=== PATIENT | female | born 1955 | race Caucasian/White ===

== ENCOUNTER 2017-09-29 23:40 | Observation (INO) | payer OTHER ==
[~2017-09-29] VITALS: Ht 162.6 cm; Wt 40.8 kg
[~2017-09-29 23:40] MED LIST: ACYC400; ASPI81CH; ASPI81EC PO; AZIT250 PO; Aspir-Low81 MG PO; Ativan1 MG PO; BASAGLAR K100 UNIT/1; BUPR150ER PO; Budeprion Sr150 MG PO; CALCA500CH PO; CEPH500 PO; CHOL10002; CYCL10 PO; Crutch1 EACH MISC; DOCU100 PO; FLUC150A PO; HYDPAM50 PO; Haldol 5 mg Tab5 MG PO; INSDET100; INSDET100 SUBQ; L-Lysine500 M1 PO; LAMO25 PO; LIDO700A20 TOP; LORA10ER PO; LYSINE; MELO7.5 PO; METF500 PO; METPRE4DP PO; MULVITMIND PO; MUPI2TO TOP; Norco 10-325 T1 EACH PO; Novolog100 UNIT/2; OMEP20ER PO; OMEPRAZOLE MAGN20 MG PO; PRAV20 PO; QUET100 PO; QUET200 PO; QUET300 PO; RANI150 PO; TRAZ100; TRAZ100 PO; TRAZ150T57; TRAZ50 PO; ULTRA-LIGHT RO1 EACH UD; VALA500 PO; VENL150ER PO; VENL75; Verotin-Gr Cap1 EACH PO; [UNRECOGNIZED DRUG - REMARK]
[2017-09-30 07:13] LABS: BASOPHILS ABSOLUTE AUTO 0.03 K/mm3 (0.00-0.23); BASOPHILS PERCENT AUTO 0 % (0-2); EOSINOPHILS PERCENT AUTO 4 % (0-6); Hemoglobin 14.4 g/dL (11.5-16.0); IMMATURE GRAN ABSOLUTE AUTO 0.01 K/mm3 (0.00-0.10); IMMATURE GRAN PERCENT AUTO 0 % (0-1); LYMPHOCYTES ABSOLUTE AUTO 2.85 K/mm3 (0.84-5.20); LYMPHOCYTES PERCENT AUTO 38 % (21-46); MONOCYTES ABSOLUTE AUTO 0.82 K/mm3 (0.16-1.47); MONOCYTES PERCENT AUTO 11 % (4-13); Mean Corpuscular HGB 30.7 pg (26.0-34.0); Mean Corpuscular HGB Conc 33.5 g/dL (31.5-36.5); Mean Corpuscular Volume 92 fL (80-100); NEUTROPHILS ABSOLUTE AUTO 3.58 K/mm3 (1.96-9.15); NEUTROPHILS PERCENT AUTO 47 % (41-73); Platelet Count 169 K/mm3 (150-400); RDW Standard Deviation 39.6 fL (35.1-46.3); Red Blood Cell Count 4.69 M/mm3 (3.80-5.20); White Blood Cell Count 7.59 K/mm3 (4.00-11.30)
[2017-09-30 07:35] LABS: Alanine Aminotransfer (ALT/SGP 22 U/L (12-78); Albumin, Blood 2.6 g/dL (3.4-5.0); Albumin/Globulin Ratio 0.7 (0.8-1.8); Alk Phos 145 U/L (50-136); Anion Gap 5 mmol/L (6-16); Aspartate Aminotrans (AST/SGOT 17 U/L (12-37); Bilirubin, Total 0.4 mg/dL (0.1-1.0); Blood Urea Nitrogen 8 mg/dL (8-24); Bun/Creatinine Ratio 18.5 (12.0-20.0); CO2, Blood 29 mmol/L (21-32); Calcium, Blood 8.5 mg/dL (8.5-10.1); Chloride, Blood 104 mmol/L (98-108); Creatinine, Blood 0.43 mg/dL (0.40-1.00); Globulin, Blood 3.7 g/dL (2.2-4.0); Glomerular Filtration Rate >60 (60-); Glucose, Blood 302 mg/dL (70-99); Salicylate <1.7 mg/dL (2.8-20.0); Sodium, Blood 138 mmol/L (136-145); Total Protein, Blood 6.3 g/dL (6.4-8.2)
[2017-09-30 07:46] LABS: Acetaminophen, Random <2.0 ug/mL (10.0-30.0); Ethanol (Alcohol), Blood, Med <3 mg/dL
[2017-10-01 01:47] LABS: Source, Urine Clean Catch
[2017-10-01 01:50] LABS: Bilirubin, Urine Neg (Neg); Blood, Urine 1+ (Neg); Glucose Qualitative, Urine 3+ (Neg); Ketones, Urine Neg (Neg); Leukocyte Esterase, Urine Neg (Neg); Nitrite, Urine Neg (Neg); Protein, Urine 2+ (Neg); Specific Gravity, Urine 1.015 (1.003-1.022); Urobilinogen, Urine NORM (Normal)
[2017-10-01 01:58] LABS: Appearance, Urine Clear (Clear); Color, Urine Yellow (P-Yellow)
[2017-10-01 01:59] LABS: Bacteria Few /hpf; Red Blood Cells, Urine 0-2 /hpf (0-2); Squamous Epithelial Cells Rare /hpf (Few); White Blood Cells, Urine 0-2 /hpf (0-5)
== END 2017-10-07 11:00 | disposition home or self-care (01) ==
LOC: ER 23:40 → EOR 23:41 → ICUE 23:41 → MEDS 10-03 12:59 → ENPENDDIS 10-07 10:41 → MEDS 10-07 11:00
PROVIDERS: Emergency Medicine
DX: F31.9 Bipolar disorder, unspecified (principal); R26.89 Other abnormalities of gait and mobility; F15.10 Other stimulant abuse, uncomplicated; G92 Toxic encephalopathy; E11.9 Type 2 diabetes mellitus without complications; K21.9 Gastro-esophageal reflux disease without esophagitis; F17.200 Nicotine dependence, unspecified, uncomplicated; E78.5 Hyperlipidemia, unspecified; I67.89 Other cerebrovascular disease; Z74.09 Other reduced mobility; Z88.5 Allergy status to narcotic agent; Z88.8 Allergy status to other drugs, medicaments and biological substances; Z88.2 Allergy status to sulfonamides; Z79.899 Other long term (current) drug therapy; Z79.4 Long term (current) use of insulin
CPT/HCPCS: 80053; 81001; 82947; 84443; 85025; 96372; 97163; 97166; 97535; 99285; G0378; G0480; G8978; G8979; G8980; G8987; G8988; G8989; J1200; J1630; J1650; J1815; J2060; Q0163

== ENCOUNTER 2017-10-08 18:27 | Emergency (ER) | payer OTHER ==
[~2017-10-08] VITALS: Ht 162.6 cm; Wt 40.8 kg
== END 2017-10-08 21:08 | disposition left against medical advice (07) ==
LOC: ER 18:27
DX: Z53.21 Procedure and treatment not carried out due to patient leaving prior to being seen by health care provider (principal)

== ENCOUNTER 2017-10-09 12:30 | Inpatient (IN) | payer OTHER ==
[~2017-10-09] VITALS: Ht 157.5 cm; Wt 43.8 kg
[2017-10-09 13:48] LABS: Source, Urine Clean Catch
[2017-10-09 13:52] LABS: Appearance, Urine Cloudy (Clear); Bilirubin, Urine Neg (Neg); Blood, Urine 3+ (Neg); Color, Urine Yellow (P-Yellow); Glucose Qualitative, Urine 4+ (Neg); Ketones, Urine Neg (Neg); Leukocyte Esterase, Urine 3+ (Neg); Nitrite, Urine Neg (Neg); Protein, Urine 2+ (Neg); Urobilinogen, Urine NORM (Normal)
[2017-10-09 13:59] LABS: White Blood Cells, Urine TNTC /hpf (0-5)
[2017-10-09 14:00] LABS: Bacteria Many /hpf; Squamous Epithelial Cells Rare /hpf (Few); Yeast/Fungi Urine Mod /hpf
[2017-10-09 14:03] LABS: U Amphetamine Screen Not Detected; U Barbituate Screen Not Detected; U Benzodiazapine Screen DETECTED; U Buprenorphine Screen Not Detected; U Cannabinoids Screen Not Detected; U Cocaine Screen Not Detected; U Methadone Screen Not Detected; U Methamphetamine Screen Not Detected; U Opiates Screen Not Detected; U Oxycodone Screen Not Detected; U Phencyclidine Screen Not Detected; U Propoxyphene Screen Not Detected
[2017-10-09 15:32] LABS: BASOPHILS ABSOLUTE AUTO 0.06 K/mm3 (0.00-0.23); BASOPHILS PERCENT AUTO 1 % (0-2); EOSINOPHILS ABSOLUTE AUTO 0.18 K/mm3 (0.00-0.68); EOSINOPHILS PERCENT AUTO 2 % (0-6); Hematocrit 44.3 % (33.0-51.0); Hemoglobin 14.6 g/dL (11.5-16.0); IMMATURE GRAN ABSOLUTE AUTO 0.02 K/mm3 (0.00-0.10); IMMATURE GRAN PERCENT AUTO 0 % (0-1); LYMPHOCYTES ABSOLUTE AUTO 3.09 K/mm3 (0.84-5.20); LYMPHOCYTES PERCENT AUTO 32 % (21-46); MONOCYTES PERCENT AUTO 6 % (4-13); Mean Corpuscular HGB 30.4 pg (26.0-34.0); Mean Corpuscular Volume 92 fL (80-100); Mean Platelet Volume 11.5 fL (9.1-12.4); NEUTROPHILS ABSOLUTE AUTO 5.81 K/mm3 (1.96-9.15); NEUTROPHILS PERCENT AUTO 60 % (41-73); Platelet Count 261 K/mm3 (150-400); RDW Coefficient Variation 11.8 % (11.7-14.2); RDW Standard Deviation 40.1 fL (35.1-46.3); Red Blood Cell Count 4.81 M/mm3 (3.80-5.20); White Blood Cell Count 9.76 K/mm3 (4.00-11.30)
[2017-10-09 15:47] LABS: Acetaminophen, Random 11.6 ug/mL (10.0-30.0); Alanine Aminotransfer (ALT/SGP 21 U/L (12-78); Albumin/Globulin Ratio 0.7 (0.8-1.8); Alk Phos 267 U/L (50-136); Anion Gap 9 mmol/L (6-16); Aspartate Aminotrans (AST/SGOT 19 U/L (12-37); Bilirubin, Total 0.2 mg/dL (0.1-1.0); Blood Urea Nitrogen 18 mg/dL (8-24); Bun/Creatinine Ratio 53.7 (12.0-20.0); CO2, Blood 26 mmol/L (21-32); Calcium, Blood 9.2 mg/dL (8.5-10.1); Chloride, Blood 98 mmol/L (98-108); Creatinine, Blood 0.34 mg/dL (0.40-1.00); Ethanol (Alcohol), Blood, Med <3 mg/dL; Globulin, Blood 4.4 g/dL (2.2-4.0); Glomerular Filtration Rate >60 (60-); Glucose, Blood 354 mg/dL (70-99); Potassium, Blood 4.4 mmol/L (3.5-5.5); Salicylate 1.8 mg/dL (2.8-20.0); Sodium, Blood 133 mmol/L (136-145); Total Protein, Blood 7.4 g/dL (6.4-8.2)
[2017-10-15 05:13] LABS: Hematocrit 41.2 % (33.0-51.0); Hemoglobin 13.8 g/dL (11.5-16.0); Mean Corpuscular HGB 30.9 pg (26.0-34.0); Mean Corpuscular HGB Conc 33.5 g/dL (31.5-36.5); Mean Corpuscular Volume 92 fL (80-100); Mean Platelet Volume 10.9 fL (9.1-12.4); Platelet Count 263 K/mm3 (150-400); RDW Coefficient Variation 11.9 % (11.7-14.2); RDW Standard Deviation 40.1 fL (35.1-46.3); Red Blood Cell Count 4.46 M/mm3 (3.80-5.20); White Blood Cell Count 7.48 K/mm3 (4.00-11.30)
[2017-10-15 05:41] LABS: Anion Gap 8 mmol/L (6-16); Blood Urea Nitrogen 7 mg/dL (8-24); Bun/Creatinine Ratio 18.1 (12.0-20.0); CO2, Blood 27 mmol/L (21-32); Calcium, Blood 9.3 mg/dL (8.5-10.1); Chloride, Blood 108 mmol/L (98-108); Creatinine, Blood 0.39 mg/dL (0.40-1.00); Glomerular Filtration Rate >60 (60-); Glucose, Blood 174 mg/dL (70-99); Potassium, Blood 3.6 mmol/L (3.5-5.5); Sodium, Blood 143 mmol/L (136-145)
[2017-10-15] MEDS ORDERED: DOCU100 PO (10:48)
[2017-10-18 11:26] LABS: Alanine Aminotransfer (ALT/SGP 19 U/L (12-78); Albumin, Blood 2.7 g/dL (3.4-5.0); Albumin/Globulin Ratio 0.7 (0.8-1.8); Alk Phos 191 U/L (50-136); Anion Gap 7 mmol/L (6-16); Aspartate Aminotrans (AST/SGOT 17 U/L (12-37); Bilirubin, Total 0.2 mg/dL (0.1-1.0); Blood Urea Nitrogen 8 mg/dL (8-24); Bun/Creatinine Ratio 20.4 (12.0-20.0); CO2, Blood 22 mmol/L (21-32); Calcium, Blood 8.6 mg/dL (8.5-10.1); Chloride, Blood 107 mmol/L (98-108); Creatinine, Blood 0.39 mg/dL (0.40-1.00); Globulin, Blood 3.9 g/dL (2.2-4.0); Glomerular Filtration Rate >60 (60-); Glucose, Blood 249 mg/dL (70-99); Potassium, Blood 4.1 mmol/L (3.5-5.5); Sodium, Blood 136 mmol/L (136-145); Total Protein, Blood 6.6 g/dL (6.4-8.2)
[2017-10-20 16:49] LABS: Alanine Aminotransfer (ALT/SGP 17 U/L (12-78); Albumin/Globulin Ratio 0.7 (0.8-1.8); Alk Phos 177 U/L (50-136); Anion Gap 9 mmol/L (6-16); Aspartate Aminotrans (AST/SGOT 12 U/L (12-37); Bilirubin, Total 0.2 mg/dL (0.1-1.0); Blood Urea Nitrogen 10 mg/dL (8-24); Bun/Creatinine Ratio 21.3 (12.0-20.0); CO2, Blood 24 mmol/L (21-32); Calcium, Blood 9.2 mg/dL (8.5-10.1); Chloride, Blood 105 mmol/L (98-108); Creatinine, Blood 0.47 mg/dL (0.40-1.00); Globulin, Blood 4.1 g/dL (2.2-4.0); Glomerular Filtration Rate >60 (60-); Glucose, Blood 212 mg/dL (70-99); Potassium, Blood 3.8 mmol/L (3.5-5.5); Sodium, Blood 138 mmol/L (136-145); Total Protein, Blood 7.1 g/dL (6.4-8.2)
== END 2017-10-22 18:50 | DRG 885 ==
LOC: ER 12:30 → EOR 12:31 → MEDS 20:40 → EOR 20:40 → MEDS 20:41
PROVIDERS: Hospitalist; Internal Medicine; Physician Assistant
DX: F30.2 Manic episode, severe with psychotic symptoms (principal); E43 Unspecified severe protein-calorie malnutrition; S32.000A Wedge compression fracture of unspecified lumbar vertebra, initial encounter for closed fracture; N39.0 Urinary tract infection, site not specified; R64 Cachexia; E87.1 Hypo-osmolality and hyponatremia; Z68.1 Body mass index [BMI] 19.9 or less, adult; E78.00 Pure hypercholesterolemia, unspecified; A60.00 Herpesviral infection of urogenital system, unspecified; Z85.51 Personal history of malignant neoplasm of bladder; Z79.4 Long term (current) use of insulin; R45.1 Restlessness and agitation; K21.9 Gastro-esophageal reflux disease without esophagitis; F17.210 Nicotine dependence, cigarettes, uncomplicated; E11.65 Type 2 diabetes mellitus with hyperglycemia; R26.81 Unsteadiness on feet; M53.3 Sacrococcygeal disorders, not elsewhere classified; Z78.1 Physical restraint status
CPT/HCPCS: 36415; 72220; 80048; 80053; 81001; 81025; 82947; 83036; 84443; 85025; 85027; 87077; 87086; 99285; G0378; G0480; J0696; J1815; J2765; Q3014

== ENCOUNTER 2018-04-30 21:28 | Observation (INO) | payer OTHER ==
[~2018-04-30] VITALS: Ht 157.5 cm; Wt 130.0 kg
[2018-04-30] MEDS ORDERED: QUET100 PO (23:17)
[2018-04-30] MEDS ORDERED: INSULANPEN (23:18)
[2018-04-30] MEDS ORDERED: Novolog Fl100 UNIT/1 (23:18)
[2018-05-01 07:50] LABS: BASOPHILS ABSOLUTE AUTO 0.04 K/mm3 (0.00-0.23); BASOPHILS PERCENT AUTO 0 % (0-2); EOSINOPHILS ABSOLUTE AUTO 0.16 K/mm3 (0.00-0.68); EOSINOPHILS PERCENT AUTO 2 % (0-6); Hematocrit 38.6 % (33.0-51.0); Hemoglobin 12.8 g/dL (11.5-16.0); IMMATURE GRAN ABSOLUTE AUTO 0.03 K/mm3 (0.00-0.10); IMMATURE GRAN PERCENT AUTO 0 % (0-1); LYMPHOCYTES ABSOLUTE AUTO 2.19 K/mm3 (0.84-5.20); LYMPHOCYTES PERCENT AUTO 21 % (21-46); MONOCYTES ABSOLUTE AUTO 0.88 K/mm3 (0.16-1.47); MONOCYTES PERCENT AUTO 9 % (4-13); Mean Corpuscular HGB 31.9 pg (26.0-34.0); Mean Corpuscular HGB Conc 33.2 g/dL (31.5-36.5); Mean Corpuscular Volume 96 fL (80-100); NEUTROPHILS ABSOLUTE AUTO 7.09 K/mm3 (1.96-9.15); NEUTROPHILS PERCENT AUTO 68 % (41-73); RDW Coefficient Variation 12.1 % (11.7-14.2); RDW Standard Deviation 42.8 fL (35.1-46.3); Red Blood Cell Count 4.01 M/mm3 (3.80-5.20); White Blood Cell Count 10.39 K/mm3 (4.00-11.30)
[2018-05-01 07:52] LABS: Mean Platelet Volume 11.4 fL (9.1-12.4); Platelet Count 122 K/mm3 (150-400)
[2018-05-01 08:09] LABS: Ethanol (Alcohol), Blood, Med <3 mg/dL; Salicylate 3.9 mg/dL (2.8-20.0)
[2018-05-01 08:20] LABS: Acetaminophen, Random <2.0 ug/mL (10.0-30.0); Alanine Aminotransfer (ALT/SGP 33 U/L (12-78); Albumin, Blood 3.4 g/dL (3.4-5.0); Alk Phos 89 U/L (50-136); Anion Gap 9 mmol/L (6-16); Aspartate Aminotrans (AST/SGOT 33 U/L (12-37); Bilirubin, Total 0.5 mg/dL (0.1-1.0); Blood Urea Nitrogen 7 mg/dL (8-24); Bun/Creatinine Ratio 13.2 (12.0-20.0); CO2, Blood 23 mmol/L (21-32); Calcium, Blood 8.7 mg/dL (8.5-10.1); Chloride, Blood 109 mmol/L (98-108); Creatinine, Blood 0.53 mg/dL (0.40-1.00); Globulin, Blood 3.4 g/dL (2.2-4.0); Glomerular Filtration Rate >60 (60-); Glucose, Blood 155 mg/dL (70-99); Potassium, Blood 3.2 mmol/L (3.5-5.5); Sodium, Blood 141 mmol/L (136-145); Total Protein, Blood 6.8 g/dL (6.4-8.2)
== END 2018-05-01 12:50 | disposition home or self-care (01) ==
LOC: ER 21:28 → EOR 21:29
PROVIDERS: ADMIT Emergency Medicine
DX: F23 Brief psychotic disorder (principal); F31.9 Bipolar disorder, unspecified; F43.25 Adjustment disorder with mixed disturbance of emotions and conduct; E11.9 Type 2 diabetes mellitus without complications; F17.210 Nicotine dependence, cigarettes, uncomplicated; Z88.2 Allergy status to sulfonamides; Z88.8 Allergy status to other drugs, medicaments and biological substances; Z79.899 Other long term (current) drug therapy
CPT/HCPCS: 36415; 80053; 82947; 84443; 85025; 96372; 99285-25; G0378; G0480; J1200; J1630; J2060

== ENCOUNTER 2018-05-06 12:51 | Emergency (ER) | payer OTHER ==
[~2018-05-06] VITALS: Ht 160 cm; Wt 52.2 kg
[~2018-05-06 12:51] MED LIST changes: +INSULANPEN; +Novolog Fl100 UNIT/1
[2018-05-06 13:34] LABS: Source, Urine Clean Catch
[2018-05-06 13:38] LABS: Blood, Urine 5+ (Neg); Glucose Qualitative, Urine 1+ (Neg); Ketones, Urine 3+ (Neg); Leukocyte Esterase, Urine 2+ (Neg); Nitrite, Urine Neg (Neg); Protein, Urine 3+ (Neg); Urobilinogen, Urine 2+ (Normal)
[2018-05-06 13:58] LABS: Appearance, Urine Clear (Clear); Bilirubin, Urine 1+ (Neg); Color, Urine Yellow (P-Yellow)
[2018-05-06 14:00] LABS: U Amphetamine Screen DETECTED; U Methamphetamine Screen DETECTED
[2018-05-06 14:01] LABS: Bacteria Not Seen /hpf; Squamous Epithelial Cells Rare /hpf (Few); U Barbituate Screen Not Detected; U Benzodiazapine Screen Not Detected; U Buprenorphine Screen Not Detected; U Cannabinoids Screen Not Detected; U Cocaine Screen Not Detected; U Methadone Screen Not Detected; U Opiates Screen Not Detected; U Oxycodone Screen Not Detected; U Phencyclidine Screen Not Detected; U Propoxyphene Screen Not Detected
[2018-05-06 14:24] LABS: BASOPHILS ABSOLUTE AUTO 0.03 K/mm3 (0.00-0.23); BASOPHILS PERCENT AUTO 0 % (0-2); EOSINOPHILS ABSOLUTE AUTO 0.01 K/mm3 (0.00-0.68); EOSINOPHILS PERCENT AUTO 0 % (0-6); Hematocrit 39.8 % (33.0-51.0); Hemoglobin 13.8 g/dL (11.5-16.0); IMMATURE GRAN ABSOLUTE AUTO 0.05 K/mm3 (0.00-0.10); IMMATURE GRAN PERCENT AUTO 1 % (0-1); LYMPHOCYTES ABSOLUTE AUTO 1.64 K/mm3 (0.84-5.20); LYMPHOCYTES PERCENT AUTO 17 % (21-46); MONOCYTES ABSOLUTE AUTO 0.85 K/mm3 (0.16-1.47); MONOCYTES PERCENT AUTO 9 % (4-13); Mean Corpuscular HGB 31.4 pg (26.0-34.0); Mean Corpuscular HGB Conc 34.7 g/dL (31.5-36.5); Mean Platelet Volume 10.4 fL (9.1-12.4); NEUTROPHILS ABSOLUTE AUTO 6.95 K/mm3 (1.96-9.15); NEUTROPHILS PERCENT AUTO 73 % (41-73); Platelet Count 205 K/mm3 (150-400); RDW Coefficient Variation 11.8 % (11.7-14.2); RDW Standard Deviation 39.6 fL (35.1-46.3); Red Blood Cell Count 4.39 M/mm3 (3.80-5.20); White Blood Cell Count 9.53 K/mm3 (4.00-11.30)
[2018-05-06 14:25] LABS: Mean Corpuscular Volume 91 fL (80-100)
[2018-05-06 14:59] LABS: Ethanol (Alcohol), Blood, Med <3 mg/dL
[2018-05-06 15:06] LABS: Alanine Aminotransfer (ALT/SGP 32 U/L (12-78); Albumin, Blood 3.3 g/dL (3.4-5.0); Albumin/Globulin Ratio 0.8 (0.8-1.8); Alk Phos 175 U/L (50-136); Anion Gap 15 mmol/L (6-16); Aspartate Aminotrans (AST/SGOT 36 U/L (12-37); Bilirubin, Total 0.6 mg/dL (0.1-1.0); Blood Urea Nitrogen 20 mg/dL (8-24); Bun/Creatinine Ratio 27.9 (12.0-20.0); CO2, Blood 21 mmol/L (21-32); Calcium, Blood 8.6 mg/dL (8.5-10.1); Chloride, Blood 92 mmol/L (98-108); Creatinine, Blood 0.72 mg/dL (0.40-1.00); Globulin, Blood 4.3 g/dL (2.2-4.0); Glomerular Filtration Rate >60 (60-); Glucose, Blood 289 mg/dL (70-99); Potassium, Blood 3.3 mmol/L (3.5-5.5); Sodium, Blood 128 mmol/L (136-145); Total Protein, Blood 7.6 g/dL (6.4-8.2)
[2018-05-06 15:30] LABS: Acetaminophen, Random <2.0 ug/mL (10.0-30.0)
== END 2018-05-06 16:14 | disposition home or self-care (01) ==
LOC: ER 12:51
PROVIDERS: Emergency Medicine
DX: E11.65 Type 2 diabetes mellitus with hyperglycemia (principal); F31.9 Bipolar disorder, unspecified; F15.10 Other stimulant abuse, uncomplicated; E78.00 Pure hypercholesterolemia, unspecified; Z88.5 Allergy status to narcotic agent; Z88.2 Allergy status to sulfonamides; Z88.8 Allergy status to other drugs, medicaments and biological substances; Z79.899 Other long term (current) drug therapy; Z79.4 Long term (current) use of insulin
CPT/HCPCS: 36415; 80053; 81001; 84443; 85025; 87086; 96374; 99284-25; G0480; J2060

== ENCOUNTER 2018-05-09 17:46 | Emergency (ER) | payer OTHER | END 2018-05-09 18:19 | disposition left against medical advice (07) | LOC: ER 17:46 | DX: Z53.21 Procedure and treatment not carried out due to patient leaving prior to being seen by health care provider (principal) ==

== ENCOUNTER 2018-05-14 12:03 | Observation (INO) | payer OTHER ==
[~2018-05-14] VITALS: Ht 162.6 cm; Wt 47.0 kg
[2018-05-14 13:14] LABS: BASOPHILS ABSOLUTE AUTO 0.03 K/mm3 (0.00-0.23); BASOPHILS PERCENT AUTO 0 % (0-2); EOSINOPHILS ABSOLUTE AUTO 0.03 K/mm3 (0.00-0.68); EOSINOPHILS PERCENT AUTO 0 % (0-6); Hematocrit 42.2 % (33.0-51.0); Hemoglobin 13.9 g/dL (11.5-16.0); IMMATURE GRAN ABSOLUTE AUTO 0.08 K/mm3 (0.00-0.10); IMMATURE GRAN PERCENT AUTO 1 % (0-1); LYMPHOCYTES ABSOLUTE AUTO 2.37 K/mm3 (0.84-5.20); LYMPHOCYTES PERCENT AUTO 17 % (21-46); MONOCYTES ABSOLUTE AUTO 1.18 K/mm3 (0.16-1.47); MONOCYTES PERCENT AUTO 8 % (4-13); Mean Corpuscular HGB 31.2 pg (26.0-34.0); Mean Corpuscular HGB Conc 32.9 g/dL (31.5-36.5); Mean Platelet Volume 10.7 fL (9.1-12.4); NEUTROPHILS ABSOLUTE AUTO 10.66 K/mm3 (1.96-9.15); NEUTROPHILS PERCENT AUTO 74 % (41-73); Platelet Count 462 K/mm3 (150-400); RDW Coefficient Variation 12.2 % (11.7-14.2); RDW Standard Deviation 42.5 fL (35.1-46.3); Red Blood Cell Count 4.46 M/mm3 (3.80-5.20); White Blood Cell Count 14.35 K/mm3 (4.00-11.30)
[2018-05-14 13:29] LABS: Alanine Aminotransfer (ALT/SGP 56 U/L (12-78); Albumin, Blood 3.5 g/dL (3.4-5.0); Albumin/Globulin Ratio 0.7 (0.8-1.8); Alk Phos 118 U/L (50-136); Anion Gap 11 mmol/L (6-16); Aspartate Aminotrans (AST/SGOT 77 U/L (12-37); Bilirubin, Total 0.8 mg/dL (0.1-1.0); Blood Urea Nitrogen 24 mg/dL (8-24); Bun/Creatinine Ratio 53.3 (12.0-20.0); CO2, Blood 25 mmol/L (21-32); Calcium, Blood 10.1 mg/dL (8.5-10.1); Chloride, Blood 108 mmol/L (98-108); Creatinine, Blood 0.45 mg/dL (0.40-1.00); Globulin, Blood 5.2 g/dL (2.2-4.0); Glomerular Filtration Rate >60 (60-); Glucose, Blood 131 mg/dL (70-99); Potassium, Blood 3.8 mmol/L (3.5-5.5); Sodium, Blood 144 mmol/L (136-145); Total Protein, Blood 8.7 g/dL (6.4-8.2)
[2018-05-14 13:31] LABS: Mean Corpuscular Volume 95 fL (80-100)
[2018-05-14 14:58] LABS: Ethanol (Alcohol), Blood, Med <3 mg/dL; Salicylate 2.2 mg/dL (2.8-20.0); Thyroxine (T4) 13.1 ug/dL (4.8-13.9)
[2018-05-14 15:02] LABS: Acetaminophen, Random <2.0 ug/mL (10.0-30.0)
[2018-05-18 10:37] LABS: Source, Urine Catheter
[2018-05-18 10:39] LABS: Appearance, Urine Hazy (Clear); Blood, Urine 1+ (Neg); Color, Urine Yellow (P-Yellow); Glucose Qualitative, Urine 3+ (Neg); Ketones, Urine Neg (Neg); Leukocyte Esterase, Urine 1+ (Neg); Nitrite, Urine Neg (Neg); Protein, Urine 3+ (Neg); Specific Gravity, Urine 1.015 (1.003-1.022); Urobilinogen, Urine 3+ (Normal)
[2018-05-18 10:59] LABS: U Amphetamine Screen Not Detected; U Barbituate Screen Not Detected; U Benzodiazapine Screen Not Detected; U Cocaine Screen Not Detected; U Methadone Screen Not Detected; U Methamphetamine Screen Not Detected
[2018-05-18 11:00] LABS: U Buprenorphine Screen Not Detected; U Cannabinoids Screen Not Detected; U Opiates Screen Not Detected; U Oxycodone Screen Not Detected; U Phencyclidine Screen Not Detected; U Propoxyphene Screen Not Detected
[2018-05-18 11:05] LABS: Bilirubin, Urine 1+ (Neg)
[2018-05-18 11:07] LABS: Bacteria Mod /hpf; Mucus Mod (0-Heavy); Red Blood Cells, Urine 0-2 /hpf (0-2); Squamous Epithelial Cells Rare /hpf (Few)
[2018-05-21 16:09] LABS: BASOPHILS ABSOLUTE AUTO 0.05 K/mm3 (0.00-0.23); BASOPHILS PERCENT AUTO 1 % (0-2); EOSINOPHILS ABSOLUTE AUTO 0.11 K/mm3 (0.00-0.68); EOSINOPHILS PERCENT AUTO 1 % (0-6); Hematocrit 42.2 % (33.0-51.0); Hemoglobin 13.8 g/dL (11.5-16.0); IMMATURE GRAN ABSOLUTE AUTO 0.03 K/mm3 (0.00-0.10); IMMATURE GRAN PERCENT AUTO 0 % (0-1); LYMPHOCYTES ABSOLUTE AUTO 3.08 K/mm3 (0.84-5.20); LYMPHOCYTES PERCENT AUTO 31 % (21-46); MONOCYTES ABSOLUTE AUTO 0.92 K/mm3 (0.16-1.47); MONOCYTES PERCENT AUTO 9 % (4-13); Mean Corpuscular HGB 31.4 pg (26.0-34.0); Mean Corpuscular HGB Conc 32.7 g/dL (31.5-36.5); Mean Corpuscular Volume 96 fL (80-100); Mean Platelet Volume 11.3 fL (9.1-12.4); NEUTROPHILS ABSOLUTE AUTO 5.89 K/mm3 (1.96-9.15); NEUTROPHILS PERCENT AUTO 58 % (41-73); Platelet Count 322 K/mm3 (150-400); RDW Coefficient Variation 11.9 % (11.7-14.2); RDW Standard Deviation 41.7 fL (35.1-46.3); White Blood Cell Count 10.08 K/mm3 (4.00-11.30)
[2018-05-23 18:30] LABS: BASOPHILS ABSOLUTE AUTO 0.05 K/mm3 (0.00-0.23); BASOPHILS PERCENT AUTO 1 % (0-2); EOSINOPHILS ABSOLUTE AUTO 0.12 K/mm3 (0.00-0.68); EOSINOPHILS PERCENT AUTO 1 % (0-6); Hematocrit 40.5 % (33.0-51.0); Hemoglobin 13.3 g/dL (11.5-16.0); IMMATURE GRAN ABSOLUTE AUTO 0.02 K/mm3 (0.00-0.10); IMMATURE GRAN PERCENT AUTO 0 % (0-1); LYMPHOCYTES ABSOLUTE AUTO 2.21 K/mm3 (0.84-5.20); LYMPHOCYTES PERCENT AUTO 24 % (21-46); MONOCYTES ABSOLUTE AUTO 0.95 K/mm3 (0.16-1.47); MONOCYTES PERCENT AUTO 10 % (4-13); Mean Corpuscular HGB 30.8 pg (26.0-34.0); Mean Corpuscular HGB Conc 32.8 g/dL (31.5-36.5); Mean Corpuscular Volume 94 fL (80-100); NEUTROPHILS ABSOLUTE AUTO 5.85 K/mm3 (1.96-9.15); NEUTROPHILS PERCENT AUTO 64 % (41-73); RDW Coefficient Variation 11.9 % (11.7-14.2); RDW Standard Deviation 41.1 fL (35.1-46.3); Red Blood Cell Count 4.32 M/mm3 (3.80-5.20)
[2018-05-23 18:36] LABS: Platelet Count 203 K/mm3 (150-400)
[2018-05-23 18:51] LABS: Alanine Aminotransfer (ALT/SGP 33 U/L (12-78); Albumin, Blood 2.8 g/dL (3.4-5.0); Albumin/Globulin Ratio 0.6 (0.8-1.8); Alk Phos 112 U/L (50-136); Anion Gap 6 mmol/L (6-16); Aspartate Aminotrans (AST/SGOT 24 U/L (12-37); Bilirubin, Total 0.2 mg/dL (0.1-1.0); Blood Urea Nitrogen 10 mg/dL (8-24); Bun/Creatinine Ratio 22.9 (12.0-20.0); CO2, Blood 25 mmol/L (21-32); Calcium, Blood 9.1 mg/dL (8.5-10.1); Chloride, Blood 107 mmol/L (98-108); Creatinine, Blood 0.44 mg/dL (0.40-1.00); Globulin, Blood 4.5 g/dL (2.2-4.0); Glomerular Filtration Rate >60 (60-); Glucose, Blood 126 mg/dL (70-99); Sodium, Blood 138 mmol/L (136-145); Total Protein, Blood 7.3 g/dL (6.4-8.2)
[2018-05-23 19:13] LABS: CPK Creatine Kinase 67 U/L (26-193)
[2018-05-23 19:17] LABS: Creatine Kinase MB <1.0 ng/mL (0.0-3.6); Creatine Kinase MB Index Unable to Calculate (0.0-4.0)
[2018-05-31 07:14] LABS: BASOPHILS ABSOLUTE AUTO 0.04 K/mm3 (0.00-0.23); BASOPHILS PERCENT AUTO 1 % (0-2); EOSINOPHILS ABSOLUTE AUTO 0.15 K/mm3 (0.00-0.68); EOSINOPHILS PERCENT AUTO 3 % (0-6); Hemoglobin 14.4 g/dL (11.5-16.0); IMMATURE GRAN ABSOLUTE AUTO 0.01 K/mm3 (0.00-0.10); IMMATURE GRAN PERCENT AUTO 0 % (0-1); LYMPHOCYTES ABSOLUTE AUTO 2.79 K/mm3 (0.84-5.20); LYMPHOCYTES PERCENT AUTO 49 % (21-46); MONOCYTES ABSOLUTE AUTO 0.47 K/mm3 (0.16-1.47); MONOCYTES PERCENT AUTO 8 % (4-13); Mean Corpuscular HGB 30.8 pg (26.0-34.0); Mean Corpuscular HGB Conc 32.7 g/dL (31.5-36.5); Mean Corpuscular Volume 94 fL (80-100); NEUTROPHILS ABSOLUTE AUTO 2.22 K/mm3 (1.96-9.15); NEUTROPHILS PERCENT AUTO 39 % (41-73); RDW Coefficient Variation 12.6 % (11.7-14.2); RDW Standard Deviation 43.3 fL (35.1-46.3); Red Blood Cell Count 4.67 M/mm3 (3.80-5.20); White Blood Cell Count 5.68 K/mm3 (4.00-11.30)
[2018-05-31 07:25] LABS: Mean Platelet Volume 11.1 fL (9.1-12.4); Platelet Count 158 K/mm3 (150-400)
[2018-05-31 07:28] LABS: Alanine Aminotransfer (ALT/SGP 32 U/L (12-78); Albumin, Blood 3.1 g/dL (3.4-5.0); Albumin/Globulin Ratio 0.7 (0.8-1.8); Alk Phos 114 U/L (50-136); Anion Gap 8 mmol/L (6-16); Aspartate Aminotrans (AST/SGOT 48 U/L (12-37); Bilirubin, Total 0.4 mg/dL (0.1-1.0); Blood Urea Nitrogen 11 mg/dL (8-24); Bun/Creatinine Ratio 22.7 (12.0-20.0); CO2, Blood 24 mmol/L (21-32); Calcium, Blood 9.1 mg/dL (8.5-10.1); Chloride, Blood 111 mmol/L (98-108); Creatinine, Blood 0.49 mg/dL (0.40-1.00); Globulin, Blood 4.2 g/dL (2.2-4.0); Glomerular Filtration Rate >60 (60-); Glucose, Blood 113 mg/dL (70-99); Potassium, Blood 4.2 mmol/L (3.5-5.5); Sodium, Blood 143 mmol/L (136-145); Total Protein, Blood 7.3 g/dL (6.4-8.2)
[2018-06-10 19:26] LABS: Source, Urine Clean Catch
[2018-06-10 19:31] LABS: Bilirubin, Urine Neg (Neg); Blood, Urine Neg (Neg); Glucose Qualitative, Urine Neg (Neg); Ketones, Urine Neg (Neg); Leukocyte Esterase, Urine Neg (Neg); Nitrite, Urine Neg (Neg); Protein, Urine Neg (Neg); Specific Gravity, Urine 1.005 (1.003-1.022); Urobilinogen, Urine NORM (Normal)
[2018-06-10 19:38] LABS: Appearance, Urine Clear (Clear); Color, Urine Yellow (P-Yellow)
== END 2018-06-17 19:52 ==
LOC: ER 12:03 → EOR 12:04 → UNDODEPER 06-02 13:30 → EOR 06-17 19:52
PROVIDERS: Emergency Medicine; ADMIT Emergency Medicine
DX: F31.9 Bipolar disorder, unspecified (principal); F03.90 Unspecified dementia, unspecified severity, without behavioral disturbance, psychotic disturbance, mood disturbance, and anxiety; E11.9 Type 2 diabetes mellitus without complications; N39.0 Urinary tract infection, site not specified; E78.00 Pure hypercholesterolemia, unspecified; F17.210 Nicotine dependence, cigarettes, uncomplicated; Z79.899 Other long term (current) drug therapy; Z79.82 Long term (current) use of aspirin; Z79.4 Long term (current) use of insulin
CPT/HCPCS: 36415; 80053; 81001; 81003; 82550; 82553; 82947; 83690; 84436; 84443; 85025; 87077; 87086; 87186; 96372; 99285-25; G0378; G0480; J1200; J1630; J2060

== ENCOUNTER 2018-09-13 12:21 | Observation (INO) | payer OTHER ==
[~2018-09-13] VITALS: Ht 157.5 cm; Wt 54.4 kg
[2018-09-13 14:03] LABS: Source, Urine Clean Catch
[2018-09-13 14:16] LABS: Bilirubin, Urine Neg (Neg); Blood, Urine 3+ (Neg); Glucose Qualitative, Urine 4+ (Neg); Ketones, Urine Neg (Neg); Leukocyte Esterase, Urine Neg (Neg); Nitrite, Urine Neg (Neg); Protein, Urine 2+ (Neg); Urobilinogen, Urine NORM (Normal); pH, Urine 6.5 (5.0-8.0)
[2018-09-13 14:25] LABS: Appearance, Urine Clear (Clear); Color, Urine Yellow (P-Yellow)
[2018-09-13 14:28] LABS: Red Blood Cells, Urine 0-2 /hpf (0-2); Squamous Epithelial Cells Rare /hpf (Few); White Blood Cells, Urine 0-2 /hpf (0-5)
[2018-09-13 14:29] LABS: Bacteria Rare /hpf
[2018-09-13 14:34] LABS: U Amphetamine Screen Not Detected; U Barbituate Screen Not Detected; U Benzodiazapine Screen Not Detected; U Buprenorphine Screen Not Detected; U Cannabinoids Screen Not Detected; U Cocaine Screen Not Detected; U Methadone Screen Not Detected; U Methamphetamine Screen Not Detected; U Opiates Screen Not Detected; U Oxycodone Screen Not Detected; U Phencyclidine Screen Not Detected; U Propoxyphene Screen Not Detected
[2018-09-13 14:38] LABS: BASOPHILS ABSOLUTE AUTO 0.02 K/mm3 (0.00-0.23); BASOPHILS PERCENT AUTO 0 % (0-2); EOSINOPHILS ABSOLUTE AUTO 0.06 K/mm3 (0.00-0.68); EOSINOPHILS PERCENT AUTO 1 % (0-6); Hematocrit 40.9 % (33.0-51.0); Hemoglobin 13.7 g/dL (11.5-16.0); IMMATURE GRAN ABSOLUTE AUTO 0.02 K/mm3 (0.00-0.10); IMMATURE GRAN PERCENT AUTO 0 % (0-1); LYMPHOCYTES PERCENT AUTO 24 % (21-46); MONOCYTES ABSOLUTE AUTO 0.55 K/mm3 (0.16-1.47); MONOCYTES PERCENT AUTO 6 % (4-13); Mean Corpuscular HGB 31.1 pg (26.0-34.0); Mean Corpuscular HGB Conc 33.5 g/dL (31.5-36.5); Mean Corpuscular Volume 93 fL (80-100); Mean Platelet Volume 9.3 fL (9.1-12.4); NEUTROPHILS ABSOLUTE AUTO 6.96 K/mm3 (1.96-9.15); NEUTROPHILS PERCENT AUTO 70 % (41-73); Platelet Count 232 K/mm3 (150-400); RDW Coefficient Variation 11.9 % (11.7-14.2); RDW Standard Deviation 40.7 fL (35.1-46.3); Red Blood Cell Count 4.41 M/mm3 (3.80-5.20); White Blood Cell Count 10.01 K/mm3 (4.00-11.30)
[2018-09-13 15:07] LABS: Ethanol (Alcohol), Blood, Med <3 mg/dL; Salicylate 3.3 mg/dL (2.8-20.0)
[2018-09-13 15:08] LABS: Thyroid Stimulating Hormone 0.825 uIU/mL (0.360-4.800)
[2018-09-13 15:10] LABS: Acetaminophen, Random <2.0 ug/mL (10.0-30.0); Alanine Aminotransfer (ALT/SGP 22 U/L (12-78); Albumin, Blood 3.6 g/dL (3.4-5.0); Alk Phos 123 U/L (50-136); Anion Gap 8 mmol/L (6-16); Aspartate Aminotrans (AST/SGOT 14 U/L (12-37); Bilirubin, Total 0.2 mg/dL (0.1-1.0); Blood Urea Nitrogen 10 mg/dL (8-24); Bun/Creatinine Ratio 18.1 (12.0-20.0); CO2, Blood 22 mmol/L (21-32); Calcium, Blood 8.6 mg/dL (8.5-10.1); Chloride, Blood 96 mmol/L (98-108); Creatinine, Blood 0.55 mg/dL (0.40-1.00); Globulin, Blood 3.6 g/dL (2.2-4.0); Glomerular Filtration Rate >60 (60-); Glucose, Blood 333 mg/dL (70-99); Potassium, Blood 4.3 mmol/L (3.5-5.5); Sodium, Blood 126 mmol/L (136-145); Total Protein, Blood 7.2 g/dL (6.4-8.2)
[2018-09-14 06:42] LABS: Anion Gap 5 mmol/L (6-16); Blood Urea Nitrogen 12 mg/dL (8-24); Bun/Creatinine Ratio 21.6 (12.0-20.0); CO2, Blood 29 mmol/L (21-32); Calcium, Blood 9.1 mg/dL (8.5-10.1); Chloride, Blood 99 mmol/L (98-108); Creatinine, Blood 0.56 mg/dL (0.40-1.00); Glomerular Filtration Rate >60 (60-); Glucose, Blood 222 mg/dL (70-99); Potassium, Blood 4.3 mmol/L (3.5-5.5); Sodium, Blood 133 mmol/L (136-145)
== END 2018-09-14 09:32 | disposition home or self-care (01) ==
LOC: ER 12:21 → EOR 12:22
PROVIDERS: Internal Medicine; ADMIT Emergency Medicine
DX: F32.9 Major depressive disorder, single episode, unspecified (principal); F17.210 Nicotine dependence, cigarettes, uncomplicated; Z88.8 Allergy status to other drugs, medicaments and biological substances; Z88.2 Allergy status to sulfonamides; Z79.899 Other long term (current) drug therapy
CPT/HCPCS: 36415; 80048; 80053; 81001; 81025; 82947; 84443; 85025; 99285; G0378; G0480; Q3014

== ENCOUNTER 2018-10-22 18:23 | Emergency (ER) | payer OTHER ==
[~2018-10-22] VITALS: Ht 157.5 cm; Wt 59.0 kg
[2018-10-22] MEDS ORDERED: DULO30 PO (19:09)
[2018-10-22] MEDS ORDERED: PANT40 PO (19:09)
[2018-10-22] MEDS ORDERED: Trileptal150 MG PO (19:10)
[2018-10-22] MEDS ORDERED: Aspirin EC81 MG PO (19:10)
[2018-10-22] MEDS ORDERED: Seroquel300 MG (19:12)
[2018-10-22] MEDS ORDERED: GAVILAX17 GM PO (19:15)
[2018-10-22] MEDS ORDERED: INSUGL100V (19:15)
[2018-10-22] MEDS ORDERED: MELATONIN5 M1 (19:15)
[2018-10-22] MEDS ORDERED: Miralax17 GM PO (21:44)
== END 2018-10-22 21:58 | disposition home or self-care (01) ==
LOC: ER 18:23
DX: K59.00 Constipation, unspecified (principal); F31.9 Bipolar disorder, unspecified; E78.00 Pure hypercholesterolemia, unspecified; Z86.19 Personal history of other infectious and parasitic diseases; Z88.5 Allergy status to narcotic agent; Z88.8 Allergy status to other drugs, medicaments and biological substances; Z88.2 Allergy status to sulfonamides; Z79.82 Long term (current) use of aspirin; Z79.899 Other long term (current) drug therapy; E11.9 Type 2 diabetes mellitus without complications; Z87.891 Personal history of nicotine dependence
CPT/HCPCS: 74022; 99283-25

== ENCOUNTER 2019-03-12 10:21 | Emergency (ER) | payer OTHER ==
[~2019-03-12] VITALS: Ht 157.5 cm; Wt 60.8 kg
[~2019-03-12 10:21] MED LIST changes: +Aspirin EC81 MG PO; +DULO30 PO; +GAVILAX17 GM PO; +Hydrocodone-Ap1 EA23 PO; +INSUGL100V; +MELATONIN5 M1; +Miralax17 GM PO; +PANT40 PO; +Seroquel300 MG; +Trileptal150 MG PO
[2019-03-12] MEDS ORDERED: ONDA4 PO (13:18)
[2019-03-12] MEDS ORDERED: MIRT15 PO (13:18)
[2019-03-12] MEDS ORDERED: CLON.5 PO (13:18)
[2019-03-12] MEDS ORDERED: OLAN7.5 PO (13:19)
[2019-03-12] MEDS ORDERED: Colace100 MG PO (13:36)
[2019-03-12] MEDS ORDERED: Voltaren100 GM TOP (13:36)
== END 2019-03-12 17:35 | disposition home or self-care (01) ==
LOC: ER 10:21
DX: S42.211A Unspecified displaced fracture of surgical neck of right humerus, initial encounter for closed fracture (principal); S00.03XA Contusion of scalp, initial encounter; K59.00 Constipation, unspecified; F31.9 Bipolar disorder, unspecified; E11.9 Type 2 diabetes mellitus without complications; Z86.19 Personal history of other infectious and parasitic diseases; F17.210 Nicotine dependence, cigarettes, uncomplicated; Z88.5 Allergy status to narcotic agent; Z88.8 Allergy status to other drugs, medicaments and biological substances; Z88.2 Allergy status to sulfonamides; Z79.82 Long term (current) use of aspirin; Z79.899 Other long term (current) drug therapy; W19.XXXA Unspecified fall, initial encounter
CPT/HCPCS: 70450; 71045; 73060; 99284-25

== ENCOUNTER 2019-04-01 08:56 | Emergency (ER) | payer OTHER ==
[~2019-04-01] VITALS: Ht 167.6 cm; Wt 74.8 kg
[~2019-04-01 08:56] MED LIST changes: +CLON.5 PO; +Colace100 MG PO; +MIRT15 PO; +OLAN7.5 PO; +ONDA4 PO; +Voltaren100 GM TOP
== END 2019-04-01 11:37 | disposition home or self-care (01) ==
LOC: ER 08:56
DX: S42.201A Unspecified fracture of upper end of right humerus, initial encounter for closed fracture (principal); F31.9 Bipolar disorder, unspecified; E11.9 Type 2 diabetes mellitus without complications; E78.00 Pure hypercholesterolemia, unspecified; Z86.19 Personal history of other infectious and parasitic diseases; F17.210 Nicotine dependence, cigarettes, uncomplicated; Z88.5 Allergy status to narcotic agent; Z88.2 Allergy status to sulfonamides; Z88.8 Allergy status to other drugs, medicaments and biological substances; Z79.82 Long term (current) use of aspirin; Z79.899 Other long term (current) drug therapy; W18.30XA Fall on same level, unspecified, initial encounter
CPT/HCPCS: 73060; 99283-25; A9270-GY

== ENCOUNTER → 2019-11-25 | Outpatient (CLI) | payer MEDICARE, OTHER | END | disposition home or self-care (01) | LOC: LAB SHORT 14:03 → LAB UCHC 14:03 | DX: B37.2 Candidiasis of skin and nail (principal); R21 Rash and other nonspecific skin eruption | CPT/HCPCS: 87070; 87205; 87529 ==

== ENCOUNTER → 2019-12-27 | Outpatient (CLI) | payer MEDICARE, OTHER | END | disposition home or self-care (01) | LOC: LAB SHORT 11:30 → LAB 11:30 | DX: L08.0 Pyoderma (principal); B37.2 Candidiasis of skin and nail | CPT/HCPCS: 87070; 87077; 87147; 87186; 87205 ==

== ENCOUNTER 2021-05-26 23:53 | Inpatient (IN) | payer MEDICARE, OTHER ==
[~2021-05-26] VITALS: Ht 157.5 cm; Wt 60.2 kg
[2021-05-27 01:47] LABS: BASOPHILS ABSOLUTE AUTO 0.04 K/mm3 (0.00-0.23); BASOPHILS PERCENT AUTO 0 % (0-2); EOSINOPHILS ABSOLUTE AUTO 0.15 K/mm3 (0.00-0.68); EOSINOPHILS PERCENT AUTO 1 % (0-6); Hematocrit 43.1 % (33.0-51.0); Hemoglobin 14.4 g/dL (11.5-16.0); IMMATURE GRAN ABSOLUTE AUTO 0.05 K/mm3 (0.00-0.10); IMMATURE GRAN PERCENT AUTO 1 % (0-1); LYMPHOCYTES PERCENT AUTO 14 % (21-46); MONOCYTES ABSOLUTE AUTO 0.73 K/mm3 (0.16-1.47); MONOCYTES PERCENT AUTO 7 % (4-13); Mean Corpuscular HGB 30.3 pg (26.0-34.0); Mean Corpuscular HGB Conc 33.4 g/dL (31.5-36.5); Mean Corpuscular Volume 91 fL (80-100); Mean Platelet Volume 10.8 fL (9.1-12.4); NEUTROPHILS ABSOLUTE AUTO 8.46 K/mm3 (1.96-9.15); NEUTROPHILS PERCENT AUTO 77 % (41-73); Platelet Count 195 K/mm3 (150-400); RDW Coefficient Variation 11.7 % (11.7-14.2); RDW Standard Deviation 39.2 fL (35.1-46.3); Red Blood Cell Count 4.75 M/mm3 (3.80-5.20); White Blood Cell Count 10.93 K/mm3 (4.00-11.30)
[2021-05-27 02:06] LABS: Alanine Aminotransfer (ALT/SGP 27 U/L (12-78); Albumin, Blood 3.4 g/dL (3.4-5.0); Albumin/Globulin Ratio 0.8 (0.8-1.8); Alk Phos 118 U/L (50-136); Anion Gap 7 mmol/L (6-16); Aspartate Aminotrans (AST/SGOT 19 U/L (12-37); Bilirubin, Total 0.3 mg/dL (0.1-1.0); Blood Urea Nitrogen 11 mg/dL (8-24); Bun/Creatinine Ratio 15.8 (12.0-20.0); CO2, Blood 28 mmol/L (21-32); Calcium, Blood 9.2 mg/dL (8.5-10.1); Chloride, Blood 98 mmol/L (98-108); Globulin, Blood 4.2 g/dL (2.2-4.0); Glomerular Filtration Rate >60 (60-); Glucose, Blood 426 mg/dL (70-99); Potassium, Blood 3.9 mmol/L (3.5-5.5); Sodium, Blood 133 mmol/L (136-145); Total Protein, Blood 7.6 g/dL (6.4-8.2)
[2021-05-27 02:25] LABS: Influenza A, PCR NEGATIVE (NEGATIVE); Influenza B, PCR NEGATIVE (NEGATIVE); Resp Syncytial Virus, PCR NEGATIVE (NEGATIVE); SARS-Cov-2 (COVID-19) PCR, MMC NEGATIVE (NEGATIVE)
--- NOTE | 2021-05-27 04:49 | NUR ---
SHIFT SUMMARY PT ER ADMIT THIS AM FOR LEFT INTETROCHANTER FRACTURE AFTER SUSTAINING GLF AT HOME. ORTHO CONSULT HAS BEEN ORDERED. PT VERY PAINFUL WITH MOVEMENT. SHE DENIES N/T IN EXT, SKIN IS WARM AND INTACT. VITALS ARE STABLE. PT IS A/OX4, BUT IS A POOR HISTORIAN. LETHARGIC UPON ADMISSION. IVF INFUSING ORDERED, PT NPO. NO ACUTE CHANGES SINCE ADMISSION. BED IN LOWEST POSITION, CALL LIGHT WITHIN REACH.
[2021-05-27 11:39] LABS: Alanine Aminotransfer (ALT/SGP 26 U/L (12-78); Albumin, Blood 3.1 g/dL (3.4-5.0); Albumin/Globulin Ratio 0.8 (0.8-1.8); Alk Phos 107 U/L (50-136); Anion Gap 7 mmol/L (6-16); Aspartate Aminotrans (AST/SGOT 23 U/L (12-37); Bilirubin, Total 0.4 mg/dL (0.1-1.0); Blood Urea Nitrogen 8 mg/dL (8-24); Bun/Creatinine Ratio 13.6 (12.0-20.0); CO2, Blood 26 mmol/L (21-32); Calcium, Blood 8.6 mg/dL (8.5-10.1); Chloride, Blood 103 mmol/L (98-108); Creatinine, Blood 0.59 mg/dL (0.40-1.00); Glomerular Filtration Rate >60 (60-); Glucose, Blood 295 mg/dL (70-99); Potassium, Blood 4.1 mmol/L (3.5-5.5); Sodium, Blood 136 mmol/L (136-145); Total Protein, Blood 7.1 g/dL (6.4-8.2)
[2021-05-27 12:20] LABS: BASOPHILS ABSOLUTE AUTO 0.03 K/mm3 (0.00-0.23); BASOPHILS PERCENT AUTO 0 % (0-2); EOSINOPHILS ABSOLUTE AUTO 0.18 K/mm3 (0.00-0.68); EOSINOPHILS PERCENT AUTO 2 % (0-6); Hematocrit 41.5 % (33.0-51.0); Hemoglobin 14.1 g/dL (11.5-16.0); IMMATURE GRAN ABSOLUTE AUTO 0.02 K/mm3 (0.00-0.10); IMMATURE GRAN PERCENT AUTO 0 % (0-1); LYMPHOCYTES ABSOLUTE AUTO 1.18 K/mm3 (0.84-5.20); LYMPHOCYTES PERCENT AUTO 13 % (21-46); MONOCYTES ABSOLUTE AUTO 0.58 K/mm3 (0.16-1.47); MONOCYTES PERCENT AUTO 6 % (4-13); Mean Corpuscular HGB 30.5 pg (26.0-34.0); Mean Corpuscular Volume 90 fL (80-100); Mean Platelet Volume 10.7 fL (9.1-12.4); NEUTROPHILS PERCENT AUTO 78 % (41-73); Platelet Count 162 K/mm3 (150-400); RDW Coefficient Variation 11.8 % (11.7-14.2); RDW Standard Deviation 38.5 fL (35.1-46.3); Red Blood Cell Count 4.62 M/mm3 (3.80-5.20); White Blood Cell Count 9.09 K/mm3 (4.00-11.30)
--- NOTE | 2021-05-27 16:50 | NUR ---
6824- IN PACU FOR PRE OP HOLDING. C/O SEVERE PAIN IN LEFT HIP. GRUNTS WITH EACH EXHALED BREATH.GOOD CMS TO ALL TOES
--- NOTE | 2021-05-27 16:58 | NUR ---
SHIFT SUMMARY PT A&OX4, VSS/4LNC SATS >92%, CBGS COV PER EMAR, PAIN TREATED WITH FENT 25 MCGS X2, REPOSITIONED/PT ASSISTED, BUT UNABLE TO USE BEDPAN, VOIDING IN PAD. IV 20G, LUCIAN, INFUSING NS @ 75 MLS. TELE NSR @ 94. LEFT FOR O.R. APPROX 1600. UNABLE TO CONFIRM MEDS WITH SISTER CHAPO; CHAPO WILL CALL [facility] TO RECONCILE PT'S HOME MEDS. WILL REPORT TO ONCOMING THOMPSON RN.
--- NOTE | 2021-05-27 17:15 | NUR ---
1703- BILAT NARES SWABBED WITH EDDI. NOSE AND NAVEL JEWELLRY SECURED.
--- NOTE | 2021-05-27 17:22 | NUR ---
1720-TO OR VIA BED.
[2021-05-27 23:37] LABS: U Amphetamine Screen Not Detected; U Barbituate Screen Not Detected; U Benzodiazapine Screen Not Detected; U Buprenorphine Screen Not Detected; U Cannabinoids Screen Not Detected; U Cocaine Screen Not Detected; U Methadone Screen Not Detected; U Methamphetamine Screen Not Detected; U Opiates Screen DETECTED; U Oxycodone Screen Not Detected; U Phencyclidine Screen Not Detected; U Propoxyphene Screen Not Detected
--- NOTE | 2021-05-28 05:05 | NUR ---
SHIFT SUMMARY A/OX3 POD1 L HIP NAILING, AQUACEL X2 C/D/I. BEDREST THIS SHIFT. RETAINING URINE, STRAIGHT CATH'D, WILL MONITOR FOR POST VOID. PAIN MANAGED WITH IV PAIN MEDICATION PER EMAR. RESTED WELL THROUGHOUT SHIFT. TOLERATING PO INTAKE, NO N/V. NO NUMBNESS OR TINGLING NOTED, ABLE TO MOVE AROUND IN BED. TELE IN PLACE. WILL CONTINUE TO MONITOR AND REPORT TO ONCOMING RN.
[2021-05-28] MEDS ORDERED: QUET200 PO ×2 (08:22)
[2021-05-28] MEDS ORDERED: ZOLP10 PO (08:23)
[2021-05-28] MEDS ORDERED: Desyrel150 MG PO (08:23)
[2021-05-28] MEDS ORDERED: MELATONIN5 M1 PO (08:23)
[2021-05-28] MEDS ORDERED: DESVENLAFAXINE50 MG PO (08:25)
[2021-05-28] MEDS ORDERED: LAMO100 PO (08:25)
--- NOTE | 2021-05-28 18:11 | NUR ---
SHIFT SUMMARY VSS ON RA, x2 AQUACEL IN PLACE TO L HIP, C/D/I, S/P L HIP NAILING. PATIENT ATTEMPTED TO WORK WITH PT & OT TODAY, WAS ABLE TO GET TO EDGE OF BED W/ MODERATE ASSISTANCE. CONTINUING TO ENCOURAGE MOVEMENT. PATIENT CONSISTENTLY REPORTS 12-15/10 PAIN TO LEFT HIP, YET SITTING IN BED WATCHING TV & VISITING W/ VISITORS. MEDICATED PER EMAR. AVILES CATH PLACED D/T URINARY RETENTION. WILL REPORT TO ONCOMING RN.
--- NOTE | 2021-05-29 04:55 | NUR ---
SHIFT SUMMARY A/O X4- POD2 L HIP FIXATION- 2 AQUACELS C/D/I. NO ACUTE CHANGES OVER NIGHT. VSS. TOLERATING PO INTAKE. AVILES PATENT DRAINING TO GRAVITY. NO PAIN REPORTED THROUGHOUT SHIFT, PATIENT SLEPT MOST OF THE EVENING. REPOSITIONING SELF. NO N/V. WILL CONTINUE TO MONITOR AND REPORT TO ONCOMING RN.
--- NOTE | 2021-05-29 15:56 | NUR ---
SHIFT SUMMARY PT POD #2 FOR L HIP NAILING. PT DROWSY THIS AM BUT WAS ABLE TO WAKE UP ENOUGH TO WORK WITH PHYSICAL AND OCCUPATIONAL THERAPY. PT ABLE TO GET TO THE CHAIR WITH A 2 PERSON STAND BY ASSIST. C/O MINIMAL PAIN AND TREATED FOR PAIN X1 THIS SHIFT. AVILES IN PLACE AND DRAINING PINK TINGED URINE. VSS. WILL REPORT TO THOMPSON ELLISON.
--- NOTE | 2021-05-30 04:11 | NUR ---
SHIFT SUMMARY PT HAS SLEPT COMFORTBALY T/O SHIFT. PT WAS AWAKE AND ALERT AT THE START OF THE SHIFT REPORTING PAIN TO AFFECTED LEFT HIP, MEDICATED PER EMAR. AQUACEL DRESSING INTACT C/D. APPETITE IS GOOD AND VITALS ARE STABLE. NO ACUTE CHANGES IN ASSESSMENT OVERNIGHT. BED IN LOWEST POSITION, CALL LIGHT WITHIN REACH.
--- NOTE | 2021-05-30 09:00 | NUR ---
PT PLEASANT COOP A/O X3. PAIN IN HIP. MED PER EMAR. DID GET UP WITH P/T. 1-2 ASST. GAITE BELT TO CHAIR. H/R REG, NO MURMER NOTED. PER TELE NSR AT 92. LUNGS LITE WHEEZES. ON 3L O2. RESP EASY, UNLABORED. BT X4 LAST BM 2 DAYS PER PT. STAES NOT SURE. BOWEL CARE GIVEN. VOIDS AVILES CATH. DRAINING DARK TEA COLORED FLUID. BED IN LOW POSITION, CALL LITE IN REACH, BED ALARM ON FOR SAFETY, CALLS APPROP
--- NOTE | 2021-05-30 17:59 | NUR ---
pt pleasant today. did get up to chair with p/t. otherwise has done well today. no new complaints. medicated x1 today for pain. vss. bed in low position, call lite in reach, calls approp
--- NOTE | 2021-05-31 04:13 | NUR ---
SHIT SUMMARY NO ACUTE CHANGES TO REPORT THIS SHIFT, PT HAS RESTED MOST OF THE NIGHT, HAS NOT COMPLAINED OF PAIN. DRESSING INTACT TO LEFT HIP C/D. AVILES IN PLACE DRAINING PINK TINGED URINE. PT APPETITE GOOD. SOME CONSTIPATION . SHE DENIES N/T. VITALS STABLE. BED IN LOWEST POSITON, CALL LIGHT WITHIN REACH.
--- NOTE | 2021-05-31 17:00 | NUR ---
PT PLEASANT COOP TODAY SINCE ASSUMED CARE. NO C/O PAIN. DID WORK WWITH PT/OT TODAY. NO NEW COMPLAINTS. PRESENTLY SLEEPING. BED IN LOW POSITION, CALL LITE IN REACH, CALLSAPPROP
--- NOTE | 2021-05-31 23:32 | NUR ---
PHONE CALL PLACED TO DR. CHARLES - PT'S IV INFILTRATED. RN CALLED TELEMETRY, NO EVENTS NOTED TODAY OR YESTERDAY. PT HAS NO IV PAIN MEDICATIONS SCHEDULED. DR. CHARLES WITH ORDERS, OK TO DISCONTINUE TELEMETRY AND OK FOR NO IV ACCESS. ORDERS UPDATED.
--- NOTE | 2021-06-01 03:36 | NUR ---
SUMMARY DR CHARLES CALLD AND ORDERED NO IV AND DC TELE. PT HAD NO OTHER ISSUES NOTED. PT HAS BEEN SLEEPING T/OUT SHIFT. PT CURRENTLY SLEEPING IN NO DISTRESS. CALL LIGHT IN REACH.
--- NOTE | 2021-06-01 17:26 | NUR ---
SHIFT SUMMARY PT POST OP FOR L HIP REPAIR. PT ABLE TO GET UP WITH PHYSICAL AND OCCUPATIONAL THERAPY AND HAS BEEN UP IN THE CHAIR FOR THE MAJORITY OF THE SHIFT. MEDICATED FOR PAIN X2 THIS SHIFT WITH GOOD EFFECT. PT AGREEABLE TO NOT SMOKING WHILE HOSPITALIZED AND NICOTINE PATCH ON. AWAITING SNF PLACEMENT.
[2021-06-02 04:29] LABS: Hematocrit 37.8 % (33.0-51.0); Hemoglobin 12.2 g/dL (11.5-16.0); Mean Corpuscular HGB 30.1 pg (26.0-34.0); Mean Corpuscular HGB Conc 32.3 g/dL (31.5-36.5); Mean Corpuscular Volume 93 fL (80-100); Mean Platelet Volume 10.2 fL (9.1-12.4); Platelet Count 252 K/mm3 (150-400); RDW Coefficient Variation 12.1 % (11.7-14.2); RDW Standard Deviation 42.2 fL (35.1-46.3); Red Blood Cell Count 4.05 M/mm3 (3.80-5.20)
[2021-06-02 04:52] LABS: Anion Gap 6 mmol/L (6-16); Blood Urea Nitrogen 9 mg/dL (8-24); Bun/Creatinine Ratio 14.6 (12.0-20.0); CO2, Blood 27 mmol/L (21-32); Calcium, Blood 9.1 mg/dL (8.5-10.1); Chloride, Blood 106 mmol/L (98-108); Creatinine, Blood 0.62 mg/dL (0.40-1.00); Glomerular Filtration Rate >60 (60-); Glucose, Blood 99 mg/dL (70-99); Potassium, Blood 3.9 mmol/L (3.5-5.5); Sodium, Blood 139 mmol/L (136-145)
--- NOTE | 2021-06-02 05:11 | NUR ---
PIPE BLANKS CUT OFF SAW OPERATOR SUMMARY PATIENT WAS A&O X3. SHE WAS PLEASANT AND COOPERATIVE BUT FREQUENTLY FORGETFUL. WENT TO [facility] SEVERAL TIMES WITH TWO PERSON ASSIST. DRESSINGS ON HIP WERE C/D/I WITH SMALL AMOUNTS OF DRAINAGE VISIBLE. PATIENT REPORTED 10/10 PAIN. SHE WAS MEDICATED FOR PAIN X1 AND SLEPT THROUGH MOST OF THE NIGHT.
--- NOTE | 2021-06-02 07:05 | NUR ---
recvd report from previous shift RN, pt sleeping in bed, bed in loweset position, bed rails up x 2, call light within reach.
--- NOTE | 2021-06-02 16:30 | NUR ---
shift summary: vss, no acute changes, pt remained a/o x 3 per baseline, mildly forgetfu, orients easily. Pt worked with physical therapy this shift, has been up in chair for > 2 hrs this afternoon, will have dinner in chair. pt reports pain at 10/10 at administraion of analgesia per mar as well as reassessment while appearing to sleep comfortably. pt tolerated PO intake well, no n/v. pt refused Miralax bowel care despite no BM in 2 days; provided education x 2 this shift on the importance of bowel care. L hip surgical site c/d/i with two aquacel dressing.
--- NOTE | 2021-06-03 06:15 | NUR ---
RECEIVED HAND OFF FROM Ninfa SMART RN USING SBAR. LYING IN SEMI FOWLERS WITH EYES OPEN. AAO X3, GUZMAN, FOLLOWS ALL COMMANDS. INTERMITTEN CONFUSION NOTED. REORIENTED TO ROOM, CALL SYSTEM, AND POC, VOICES UNDERSTANDING. RESPIRATIONS EVEN AND UNLABORED ON ROOM AIR. LUNG SOUNDS CLEAR BILATERALLY. ABDOMEN SOFT AND NONDISTENDED. BOWEL TONES NOTED IN ALL QUADS. REPORTED TO HAVE HAD BM ON DAY SHIFT. LEFT HIP WITH AQUACELL DRESSINGS IN PLACE THAT ARE C/D/I. TWITCHING NOTED TO EXTREMITIES AND TRUNK, STATES THESE ARE NORMAL FOR HER. ALSO FIDGETS WITH DENTURES IN MOUTH. DENTURES WERE REMOVED AND PLACED IN DENTURE CUP WITH DENTURE TABLET AND WATER ON SHELF ABOVE SINK. MEDICATED FOR PAIN PER EMAR. DENIES FURTHER NEEDS OR WANTS AT THIS TIME. SAFETY MEASURES IN PLACE. WILL CONTINUE TO MONITOR AND ADDRESS NEEDS THEY ARISE. WILL GIVE HAND OFF TO ONCOMING SHIFT USING SBAR.
--- NOTE | 2021-06-03 15:54 | NUR ---
SHIFT SUMMARY PT IS A/O X3; PLEASANT AND COOPERATIVE WITH CARE. POD #6 FOR LEFT HIP NAILING. [address] SOME SHADOWING VISIBLE ON THE DRESSING BUT OTHERWISE CDI. PAIN MANAGED PER EMR. AWAITING SNF PLACEMENT. VSS.
--- NOTE | 2021-06-04 05:06 | NUR ---
SHIFT SUMMARY POD7 L HIP PINNING WITH 2 AQUACEL, SMALL SHADOWING AND BRUISE AROUND DRESSING REMAIN UNCHANGED OVERNIGHT. PT DENIES NUMBNESS AND TINGLING SENSATION. VSS. PT REPORTS PAIN ON L HIP, PAIN MANAGED WITH ROXICODONE. TOLERATING PO INTAKE DENIES N/V. BT PRESENT. PASSING FLATUS DENIES BM. BOWEL CARE, ORDER FOR COLACE WAS REQUESTED YESTERDAY. AOX3, MAY BE FORGETFUL AT TIMES. WB TOLERATED ON LLE. GLUCOSE /HS. NO COVERAGE NEEDED LAST NIGHT. FWW AND SBA CALL LIGHT WITHIN REACH. WILL PROVIDE REPORT TO ONCOMING NURSE.
--- NOTE | 2021-06-04 17:33 | NUR ---
SHIFT SUMMARY PT A&OX4, VSS/RA, POD8 HIP RODDING, AQUACEL X2-CDI/CHANGED TODAY. PT TOOK SHOWER TODAY. AMB 1 PP MIN/MOD ASSIST WITH FWW/GB TO BRP. VOIDING WELL. LAVERNE PO. PAIN TREATED WITH 5 MG OXY AND TYLENOL. WILL REPORT TO ONCOMING NOC SCOT.
--- NOTE | 2021-06-05 05:18 | NUR ---
SHIFT SUMMARY NO ACUTE CHANGES OVERNIGHT. PT AOX3-4, SOMETIMES FORGETFUL. PT REPORTS PAIN / BUT HAS MEDICATED ONLY ONCE BEFORE BEDTIME. PT HAS BEEN SLEEPING GOOD T/O SHIFT. AMBULATES WITH FWW AND GB TO THE BATHROOM. TOLERATES PO INTAKE. DENIES N/V. PASSING FLATUS. VOIDING WITHOUT DIFFICULTY. PT DENIES CHEST PAIN, SOB AND N/T. SURGICAL SITE ON L HIP WITH 2 AQUACEL DRESSING, CDI. PLAN: WAITING FOR PLACEMENT FOR DISCHARGE.
--- NOTE | 2021-06-05 17:21 | NUR ---
SHIFT SUMMARY PT A&OX4, VSS/RA/CBGS PER EMAR, LAVERNE PO, VOIDING WELL/BM TODAY, PAIN MANAGED WITH OXY 5 MG AND TYLENOL Q6. POD8, AQUACEL DRY/INTACT. AMB SBA W/FWW & GB; AMB TO BRP, UP TO CHAIR T/O SHIFT. WILL REPORT TO ONCOMING NOC SCOT.
--- NOTE | 2021-06-06 05:00 | NUR ---
CENTER REP SUMMARY NO ACUTE CHANGES THIS SHIFT. PT AAOX4 AND CALLS APPROPRIATELY FOR ASSISTANCE. UP TO THE BATHROOM W/ 1 ASSIST AND FWW MULTIPLE TIMES THROUGH THE NIGHT. MEDICATED FOR PAIN PER EMAR FOR SOME L HIP PAIN. AQUACEL DRESSING ON L HIP C/D/I. VSS, WILL CONTINUE TO MONITOR.
--- NOTE | 2021-06-06 07:30 | NUR ---
ASSUMED CARE: PT RESTING QUIETLY IN BED. NO ACUTE NEEDS OR CONCERNS AT THIS TIME.
[2021-06-06] MEDS ORDERED: OXYC5 PO (11:48)
[2021-06-06] MEDS ORDERED: DOCU100 PO (11:48)
[2021-06-06] MEDS ORDERED: MIRALAX17 GM PO (11:49)
[2021-06-06] MEDS ORDERED: XARELTO20 MG PO (11:50)
[2021-06-06] MEDS ORDERED: INSULANI SC (11:51)
[2021-06-06] MEDS ORDERED: HUMALOG100 UNIT/1 SC (11:57)
--- NOTE | 2021-06-06 14:41 | NUR ---
ATTEMPTED CALL TO PT'S SISTER REGARDING DISCHARGE INSTRUCTIONS. MAILBOX FULL SO UNABLE TO LEAVE MESSAGE
--- NOTE | 2021-06-06 16:26 | NUR ---
CALL TO PT'S SISTER TO GIVE HER AN UPDATE ON DC INSTRUCTIONS AND SISTER'S AMBULATION STATUS. DISCHARGE PACKET GIVEN WITH PAIN MED ORDER INSIDE. INSTRUCTED PT AND SISTER TO EXPECT IT THERE. PT AMBULATED TO WHEEL CHAIR WITH WALKER AND GAIT BELT. BELONGINGS SENT WITH PT AND PT TRANSFERRED VIA WHEELCHAIR BY [facility].
--- NOTE | 2021-06-07 16:59 | NUR ---
Received referral from nurse clinical manager home care (Erlin Lewis) on 06/06/2021. Patient discharged 06/06/2021 with orders for home health and elected [facility]. Contacted patient's sister (Kaylee Ann) at number listed on demographic sheet today- 06/07/2021 at 0927, however, patient's sister did not answer and this chief writer was unable to leave a voicemail due to the mailbox being full. Contacted patient's sister again today- 06/07/2021 at 1514 to further discuss the above. Spoke to patient's sister who are agreeable to the above. Discussed homebound status definition with patient's sister. Patient's sister verbalized understanding. Discussed what home health is vs what it is not (in home caregivers/housekeeping). Patient's sister verbalized understanding. Discussed the next steps in the process of an initial assessment to determine frequency of visits. Again patient's sister verbalized understanding. Offered a chance for patient's sister to ask questions regarding the above of which there were none. Gathered all supporting documentation for referral (face sheet, face to face, med list, H&P, discharge summary, and most recent PT assessment) and sent to [facility] for review. No further interventions required. Sherley Anguiano Referral Liaison
== END 2021-06-06 16:04 | disposition home health service (06) | DRG 482 ==
LOC: ER 23:53 → SURS 05-27 01:57
PROVIDERS: Internal Medicine; Orthopaedic Surgery; Physician Assistant; ADMIT Internal Medicine
PROC: 0QH736Z Insertion of Intramedullary Internal Fixation Device into Left Upper Femur, Percutaneous Approach (ICD-10-PCS; principal; 2021-05-27 17:30)
DX: S72.142A Displaced intertrochanteric fracture of left femur, initial encounter for closed fracture (principal); F31.9 Bipolar disorder, unspecified; E11.9 Type 2 diabetes mellitus without complications; E78.00 Pure hypercholesterolemia, unspecified; W18.30XA Fall on same level, unspecified, initial encounter; F17.210 Nicotine dependence, cigarettes, uncomplicated; F15.10 Other stimulant abuse, uncomplicated; K59.00 Constipation, unspecified; F10.10 Alcohol abuse, uncomplicated; Z20.822 Contact with and (suspected) exposure to COVID-19; K21.9 Gastro-esophageal reflux disease without esophagitis; E78.5 Hyperlipidemia, unspecified; Z88.2 Allergy status to sulfonamides; Z88.5 Allergy status to narcotic agent; Z88.8 Allergy status to other drugs, medicaments and biological substances; Z79.82 Long term (current) use of aspirin; Z79.4 Long term (current) use of insulin; Z79.899 Other long term (current) drug therapy; Z85.51 Personal history of malignant neoplasm of bladder
CPT/HCPCS: 0241U; 36415; 70450; 72125; 73502; 80048; 80053; 82947; 83880; 85025; 85027; 96374; 96375; 97110; 97116; 97162; 97166; 97530; 97535; 99285-25; A9270; C1713; J0171; J0690; J1815; J2270; J2370; J2405; J2704; J3010; J7030; J7120

== ENCOUNTER 2021-12-13 11:45 | Emergency (ER) | payer MEDICARE, OTHER ==
[~2021-12-13] VITALS: Ht 157.5 cm; Wt 65.3 kg
[~2021-12-13 11:45] MED LIST changes: +DESVENLAFAXINE50 MG PO; +Desyrel150 MG PO; +HUMALOG100 UNIT/1 SC; +INSULANI SC; +LAMO100 PO; +MELATONIN5 M1 PO; +MIRALAX17 GM PO; +OXYC5 PO; +XARELTO20 MG PO; +ZOLP10 PO
[2021-12-13] MEDS ORDERED: MS Contin15 MG PO ×2 (16:09→16:19)
[2021-12-13] MEDS ORDERED: Acetaminophen500 MG PO (16:09)
[2021-12-13] MEDS ORDERED: ONDA4 PO ×2 (16:10→16:19)
[2021-12-13 16:22] LABS: Influenza A, PCR NEGATIVE (NEGATIVE); Influenza B, PCR NEGATIVE (NEGATIVE); Resp Syncytial Virus, PCR NEGATIVE (NEGATIVE); SARS-Cov-2 (COVID-19) PCR, MMC NEGATIVE (NEGATIVE)
== END 2021-12-13 16:30 | disposition home or self-care (01) ==
LOC: ER 11:45
PROVIDERS: Student in an Organized Health Care Education/Training Program
DX: S42.322A Displaced transverse fracture of shaft of humerus, left arm, initial encounter for closed fracture (principal); E11.9 Type 2 diabetes mellitus without complications; F17.210 Nicotine dependence, cigarettes, uncomplicated; Z88.5 Allergy status to narcotic agent; Z88.8 Allergy status to other drugs, medicaments and biological substances; Z88.2 Allergy status to sulfonamides; Z79.899 Other long term (current) drug therapy; Z79.4 Long term (current) use of insulin; W07.XXXA Fall from chair, initial encounter
CPT/HCPCS: 0241U; 73060; 97162; 97530; A9270; J1885

== ENCOUNTER → 2022-03-26 | Outpatient (CLI) | payer MEDICARE, OTHER ==
[~2022-03-26] MED LIST changes: +Acetaminophen500 MG PO; +MS Contin15 MG PO
[2022-03-28 07:13] LABS: HSV-1 DNA Negative (Negative); HSV-2 DNA Negative (Negative)
== END ==
LOC: LAB 12:54 → LAB SHORT 12:54
PROVIDERS: Emergency Medicine
DX: N89.8 Other specified noninflammatory disorders of vagina (principal)
CPT/HCPCS: 87070; 87205; 87529

== ENCOUNTER → 2022-07-26 | Outpatient (CLI) | payer MEDICARE, OTHER ==
[2022-07-26 15:19] LABS: BASOPHILS ABSOLUTE AUTO 0.05 K/mm3 (0.00-0.23); BASOPHILS PERCENT AUTO 1 % (0-2); EOSINOPHILS ABSOLUTE AUTO 0.21 K/mm3 (0.00-0.68); EOSINOPHILS PERCENT AUTO 4 % (0-6); Hematocrit 41.3 % (33.0-51.0); Hemoglobin 13.5 g/dL (11.5-16.0); IMMATURE GRAN ABSOLUTE AUTO 0.01 K/mm3 (0.00-0.10); IMMATURE GRAN PERCENT AUTO 0 % (0-1); LYMPHOCYTES ABSOLUTE AUTO 2.22 K/mm3 (0.84-5.20); LYMPHOCYTES PERCENT AUTO 37 % (21-46); MONOCYTES ABSOLUTE AUTO 0.35 K/mm3 (0.16-1.47); MONOCYTES PERCENT AUTO 6 % (4-13); Mean Corpuscular HGB 30.2 pg (26.0-34.0); Mean Corpuscular HGB Conc 32.7 g/dL (31.5-36.5); Mean Corpuscular Volume 92 fL (80-100); Mean Platelet Volume 11.1 fL (9.1-12.4); NEUTROPHILS ABSOLUTE AUTO 3.14 K/mm3 (1.96-9.15); NEUTROPHILS PERCENT AUTO 53 % (41-73); Platelet Count 262 K/mm3 (150-400); RDW Standard Deviation 41.3 fL (35.1-46.3); Red Blood Cell Count 4.47 M/mm3 (3.80-5.20); White Blood Cell Count 5.98 K/mm3 (4.00-11.30)
[2022-07-26 15:24] LABS: Albumin, Blood 3.1 g/dL (3.4-5.0); Albumin/Globulin Ratio 0.7 (0.8-1.8); Bilirubin, Total 0.1 mg/dL (0.1-1.0); Creatinine, Blood 0.56 mg/dL (0.40-1.00); Globulin, Blood 4.3 g/dL (2.2-4.0); Potassium, Blood 4.3 mmol/L (3.5-5.5); Total Protein, Blood 7.4 g/dL (6.4-8.2)
[2022-07-26 15:28] LABS: Prothrombin Time Results 10.5 Sec (9.7-11.5)
== END | disposition home or self-care (01) ==
LOC: LAB 13:26 → LAB SHORT 13:26
PROVIDERS: Family Medicine
DX: S42.302A Unspecified fracture of shaft of humerus, left arm, initial encounter for closed fracture (principal); Z79.899 Other long term (current) drug therapy
CPT/HCPCS: 80053; 85025; 85610; 85730

== ENCOUNTER 2023-06-25 12:27 | Emergency (ER) | payer MEDICARE, OTHER ==
[~2023-06-25] VITALS: Ht 157.5 cm; Wt 60.8 kg
[2023-06-25 12:34] VITALS: BP 120/63
[2023-06-25 14:12] LABS: Source, Urine Clean Catch
[2023-06-25 14:16] LABS: Appearance, Urine Bloody (Clear); Bilirubin, Urine Neg (Neg); Blood, Urine 5+ (Neg); Color, Urine Red (P-Yellow); Glucose Qualitative, Urine 3+ (Neg); Ketones, Urine 1+ (Neg); Leukocyte Esterase, Urine 1+ (Neg); Nitrite, Urine Pos (Neg); Protein, Urine 3+ (Neg); Specific Gravity, Urine 1.015 (1.003-1.022); Urobilinogen, Urine NORM (Normal); pH, Urine 6.5 (5.0-8.0)
[2023-06-25 14:23] LABS: Bacteria Few /hpf; Red Blood Cells, Urine TNTC /hpf (0-2); Squamous Epithelial Cells Not Seen /hpf (Few)
[2023-06-25] MEDS ORDERED: NITR100CA PO (14:45)
== END 2023-06-25 14:53 | disposition home or self-care (01) ==
LOC: ER 12:27
PROVIDERS: Student in an Organized Health Care Education/Training Program
DX: N39.0 Urinary tract infection, site not specified (principal); R31.9 Hematuria, unspecified; Z85.51 Personal history of malignant neoplasm of bladder; E78.00 Pure hypercholesterolemia, unspecified; E11.9 Type 2 diabetes mellitus without complications; F17.210 Nicotine dependence, cigarettes, uncomplicated; Z88.5 Allergy status to narcotic agent; Z88.2 Allergy status to sulfonamides; Z88.1 Allergy status to other antibiotic agents; Z88.8 Allergy status to other drugs, medicaments and biological substances; Z79.4 Long term (current) use of insulin; Z79.899 Other long term (current) drug therapy
CPT/HCPCS: 81001; 87086; 99283

== ENCOUNTER 2023-07-19 20:17 | Emergency (ER) | payer MEDICARE, OTHER ==
[~2023-07-19] VITALS: Ht 157.5 cm; Wt 63.0 kg
[~2023-07-19 20:17] MED LIST changes: +NITR100CA PO
[2023-07-19 23:37] LABS: Source, Urine Foley catheter
[2023-07-20] LABS: Bilirubin, Urine Neg (Neg); Blood, Urine 5+ (Neg); Glucose Qualitative, Urine 4+ (Neg); Ketones, Urine 2+ (Neg); Leukocyte Esterase, Urine 1+ (Neg); Nitrite, Urine Neg (Neg); Protein, Urine 4+ (Neg); Urobilinogen, Urine NORM (Normal); pH, Urine 6.5 (5.0-8.0)
[2023-07-20 00:03] LABS: Appearance, Urine Turbid (Clear); Bacteria Many /hpf; Color, Urine Red (P-Yellow); Red Blood Cells, Urine TNTC /hpf (0-2); Squamous Epithelial Cells Rare /hpf (Few); White Blood Cells, Urine TNTC /hpf (0-5)
[2023-07-20] MEDS ORDERED: CefTRIAXone Sodium 1,000 MG in NS 50 ML IV ONE (00:40)
[2023-07-20] MEDS ORDERED: CEPH500 PO (00:41)
[2023-07-20] MEDS ORDERED: NS 1,000 ML IV SCH (00:50)
[2023-07-20 02:07] LABS: BASOPHILS ABSOLUTE AUTO 0.06 K/mm3 (0.00-0.23); BASOPHILS PERCENT AUTO 1 % (0-2); EOSINOPHILS ABSOLUTE AUTO 0.08 K/mm3 (0.00-0.68); EOSINOPHILS PERCENT AUTO 1 % (0-6); Hematocrit 35.9 % (33.0-51.0); Hemoglobin 12.3 g/dL (11.5-16.0); IMMATURE GRAN ABSOLUTE AUTO 0.04 K/mm3 (0.00-0.10); IMMATURE GRAN PERCENT AUTO 0 % (0-1); LYMPHOCYTES ABSOLUTE AUTO 1.87 K/mm3 (0.84-5.20); LYMPHOCYTES PERCENT AUTO 16 % (21-46); MONOCYTES ABSOLUTE AUTO 0.93 K/mm3 (0.16-1.47); MONOCYTES PERCENT AUTO 8 % (4-13); Mean Corpuscular HGB 30.7 pg (26.0-34.0); Mean Corpuscular HGB Conc 34.3 g/dL (31.5-36.5); Mean Corpuscular Volume 90 fL (80-100); Mean Platelet Volume 9.6 fL (9.1-12.4); NEUTROPHILS ABSOLUTE AUTO 9.05 K/mm3 (1.96-9.15); NEUTROPHILS PERCENT AUTO 75 % (41-73); Platelet Count 321 K/mm3 (150-400); RDW Standard Deviation 39.2 fL (35.1-46.3); Red Blood Cell Count 4.01 M/mm3 (3.80-5.20); White Blood Cell Count 12.03 K/mm3 (4.00-11.30)
[2023-07-20 02:25] LABS: Albumin, Blood 3.3 g/dL (3.4-5.0); Albumin/Globulin Ratio 0.8 (0.8-1.8); Bilirubin, Total 0.2 mg/dL (0.1-1.0); Calcium, Blood 9.4 mg/dL (8.5-10.1); Creatinine, Blood 0.52 mg/dL (0.40-1.00); Globulin, Blood 4.3 g/dL (2.2-4.0); Potassium, Blood 3.7 mmol/L (3.5-5.5); Total Protein, Blood 7.6 g/dL (6.4-8.2)
[2023-07-20] MEDS ORDERED: PREGABALIN25 MG PO (02:25)
[2023-07-20] MEDS ORDERED: NYSTRIT TOP (02:25)
[2023-07-20] MEDS ORDERED: CEFU500T30 PO (03:58)
[2023-07-20 04:00] VITALS: BP 163/84
== END 2023-07-20 04:20 | disposition home or self-care (01) ==
LOC: ER 20:17
PROVIDERS: Emergency Medicine; Student in an Organized Health Care Education/Training Program
DX: T83.592A Infection and inflammatory reaction due to indwelling ureteral stent, initial encounter (principal); N39.0 Urinary tract infection, site not specified; R31.9 Hematuria, unspecified; E11.9 Type 2 diabetes mellitus without complications; E78.00 Pure hypercholesterolemia, unspecified; Z87.891 Personal history of nicotine dependence; Z88.5 Allergy status to narcotic agent; Z88.1 Allergy status to other antibiotic agents; Z88.8 Allergy status to other drugs, medicaments and biological substances; Z79.899 Other long term (current) drug therapy; Z79.4 Long term (current) use of insulin; Z79.85 Long-term (current) use of injectable non-insulin antidiabetic drugs
CPT/HCPCS: 51700; 80053; 81001; 85025; 87077; 87086; 87186; 96365; 99283; J0696; J7030

== ENCOUNTER 2024-02-20 18:01 | Emergency (ER) | payer MEDICARE ==
[~2024-02-20] VITALS: Ht 157.5 cm; Wt 59.9 kg
[~2024-02-20 18:01] MED LIST changes: +CEFU500T30 PO; +NYSTRIT TOP; +PREGABALIN25 MG PO
[2024-02-20 18:43] VITALS: BP 117/65
[2024-02-20] MEDS ORDERED: RX Prepack 6 Tabs Oxycodone 5mg UD ONE (20:20)
== END 2024-02-20 21:17 | disposition home or self-care (01) ==
LOC: ER 18:01
DX: S82.845A Nondisplaced bimalleolar fracture of left lower leg, initial encounter for closed fracture (principal); F17.210 Nicotine dependence, cigarettes, uncomplicated; E78.00 Pure hypercholesterolemia, unspecified; E11.9 Type 2 diabetes mellitus without complications; W18.30XA Fall on same level, unspecified, initial encounter; Z79.899 Other long term (current) drug therapy; Z79.4 Long term (current) use of insulin; Z88.5 Allergy status to narcotic agent; Z88.1 Allergy status to other antibiotic agents; Z88.8 Allergy status to other drugs, medicaments and biological substances
CPT/HCPCS: 29515; 73610; 99283-25; A9270